=== PATIENT | male | born 1965 | race Caucasian/White ===

== ENCOUNTER 2018-02-16 01:04 | Emergency (ER) | payer OTHER ==
--- NOTE | 2018-02-16 02:26 | EDPHYS ---
Physician Documentation [facility] Name: Robert Magana Age: 52 yrs Sex: Male : 1965 Arrival Date: 02/16/2018 Time: 01:09 Bed 13 Private MD: Charles Delgadillo ED Physician Tony Watson HPI: 02/16 02:17 This 52 yrs old Male presents to ER via Ambulatory with complaints of Wound gs Infection. 02:17 Patient presents to ED for recheck of: surgery 01/28 noticed some swelling to wound, also gs concerned about edema lower extremities saw pcp today restarted hctz, no pain in extremities. The affected area is on the lumbar area. Progress: The patient reports decreased. The patient has not experienced similar symptoms in the past. Historical: - Allergies: No Known Allergies; fc - Home Meds: allopurinol Oral once daily [Active]; Propecia 1 mg oral tab 1 tab once daily [Active]; fc - PMHx: Hypertension; Gout; fc - PSHx: back surg; Knee surgery; fc - Immunization history:: Last tetanus immunization: up to date. - Social history:: Smoking status: Patient/guardian denies using tobacco. - Ebola Screening: : Patient negative for fever greater than or equal to 101.5 degrees Fahrenheit, and additional compatible Ebola Virus Disease symptoms Patient denies exposure to infectious person Patient denies travel to an Ebola-affected area in the 21 days before illness onset. ROS: 02:17 All other systems are negative. gs Exam: 02:17 Cardiovascular: Regular rate and rhythm with a normal S1 and S2. No gallops, murmurs, gs or rubs. Normal PMI, no JVD. No pulse deficits. Respiratory: Lungs have equal breath sounds bilaterally, clear to auscultation and percussion. No rales, rhonchi or wheezes noted. No increased work of breathing, no retractions or nasal flaring. Abdomen/GI: Soft, non-tender, with normal bowel sounds. No distension or tympany. No guarding or rebound. No evidence of tenderness throughout. Skin: Warm, dry with normal turgor. Normal color with no rashes, no lesions, and no evidence of cellulitis. 02:17 Constitutional: The patient appears alert, awake. 02:17 Back: incision healed, small sub q fluid collection. 02:17 Musculoskeletal/extremity: Pulses: are normal with no appreciated deficits, DVT Exam: gs no pain, no tenderness, negative Homans' sign noted on exam, no appreciated bluish discoloration, no erythema, no increased warmth, swelling. 02:17 Skin: Exam negative for cellulitis. 02:17 Neuro: Exam negative for acute changes. 02:26 Musculoskeletal/extremity: Extremities: noted in the right leg and left leg: Edema, 2+ gs to the left midcalf, left ankle, right midcalf and right ankle is noted, DVT Exam: Vital Signs: 01:29 BP 154 / 87; Pulse 83; Resp 18; Temp 98.0(O); Pulse Ox 97% on R/A; Weight 98.43 kg (R); fc Height 6 ft. 0 in. (182.88 cm) (R); Pain 3/10; 01:29 Body Mass Index 29.43 (98.43 kg, 182.88 cm) fc MDM: 02:04 Patient medically screened. 02:17 Data reviewed: vital signs, nurses notes. ED course: discussed back wound had called dr chelsey figueroa pa told him was to be expected. no tenderness medial thigh no pain in calf discuss low probability of dvt has been off diuretics for 2 weeks has restarted. pt says he doesn't want repeat bloodwork or us wants to go home encouraged to keep legs elevated continue hctz. Administered Medications: No medications were administered Disposition: 02/16/18 02:25 Discharged to Home. Impression: Edema, unspecified, seroma. - Condition is Stable. - Discharge Instructions: Edema, Seroma. - Medication Reconciliation Form, Thank You Letter, Antibiotic Education, Prescription Opioid Use form. - Follow up: Charles Delgadillo MD; When: 2 - 3 days; Reason: Re-evaluation by your physician. Follow up: Jonathan Figueroa MD; When: 2 - 3 days; Reason: Re-evaluation by your physician. Signatures: Isabel Portillo RN RN fc Kristi Zapata RN RN tl2 Tony Watson MD MD gs Corrections: (The following items were deleted from the chart) 02:40 02:25 02/16/2018 02:25 Discharged to Home. Impression: Edema, unspecified; seroma. tl2 Condition is Stable. Forms are Medication Reconciliation Form, Thank You Letter, Antibiotic Education, Prescription Opioid Use. Follow up: Charles Delgadillo; When: 2 - 3 days; Reason: Re-evaluation by your physician. Follow up: Jonathan Figueroa; When: 2 - 3 days; Reason: Re-evaluation by your physician. gs
--- NOTE | 2018-02-16 02:26 | ER ---
Nurse's Notes [facility] Name: Rboert Magana Age: 52 yrs Sex: Male : 1965 Arrival Date: 02/16/2018 Time: 01:09 Bed 13 Private MD: Charles Delgadillo Diagnosis: Edema, unspecified;seroma Presentation: 02/16 01:22 Presenting complaint: Patient states: that he had back surg on January 28, 2018 by Jonathan Santos, it was a L4-L5 disc laminectomy on the right side. 2 days ago he looked at his incision and it was red/black. Was unable to get into office yesterday due to there being no appt available. Went to [facility] today due to his feet being swollen and was given Hydrochlorothiazide. He took that at 1300 yesterday. Transition of care: patient was not received from another setting of care. Onset of symptoms was February 13, 2018. Risk Assessment: Do you want to hurt yourself or someone else? Patient reports no desire to harm self or others. Care prior to arrival: None. 01:22 Method Of Arrival: Ambulatory 01:22 Acuity: LASHONDA 3 fc 01:56 Initial Sepsis Screen: Does the patient meet any 2 criteria? No. Patient's initial tl2 sepsis screen is negative. Does the patient have a suspected source of infection? No. Patient's initial sepsis screen is negative. Triage Assessment: 01:32 General: Appears uncomfortable, slender, unkempt, Behavior is calm, cooperative, fc appropriate for age. Pain: Complains of pain in back Pain currently is 3 out of 10 on a pain scale. Quality of pain is described as aching, Pain began gradually, Is continuous. EENT: No deficits noted. Neuro: Level of Consciousness is awake, alert, obeys commands, Oriented to person, place, time, situation. Cardiovascular: No deficits noted. Cardiovascular:. Respiratory: No deficits noted. GI: No deficits noted. : No deficits noted. Derm: Skin is pink, warm \T\ dry. healing laceration to back with light pink areas around it. Musculoskeletal: Circulation, motion, and sensation intact. Capillary refill < 3 seconds, Range of motion: intact in all extremities, Swelling present in both lower legs Reports pain in lumbar area. Historical: - Allergies: 01:29 No Known Allergies; - Home Meds: : allopurinol Oral once daily [Active]; Propecia 1 mg oral tab 1 tab once daily [Active]; fc - PMHx: : Hypertension; Gout; - PSHx: back surg; Knee surgery; fc - Immunization history:: Last tetanus immunization: up to date. - Social history:: Smoking status: Patient/guardian denies using tobacco. - Ebola Screening: : Patient negative for fever greater than or equal to 101.5 degrees Fahrenheit, and additional compatible Ebola Virus Disease symptoms Patient denies exposure to infectious person Patient denies travel to an Ebola-affected area in the 21 days before illness onset. Screenin:31 Abuse screen: Denies threats or abuse. Nutritional screening: No deficits noted. tl2 Tuberculosis screening: No symptoms or risk factors identified. Fall Risk None identified. Assessment: :56 General: Appears in no apparent distress. uncomfortable, Behavior is calm, cooperative, tl2 appropriate for age. Pain: Complains of pain in lumbar area. Neuro: Level of Consciousness is awake, alert, obeys commands, Oriented to person, place, time, situation. Cardiovascular: Denies chest pain. Cardiovascular: Edema is 2+ to left ankle, left foot, right ankle and right foot pitting to left ankle, left foot, right ankle and right foot. Respiratory: Airway is patent Respiratory effort is even, unlabored, Respiratory pattern is regular, symmetrical. GI: No signs and/or symptoms were reported involving the gastrointestinal system. : No signs and/or symptoms were reported regarding the genitourinary system. Derm: Skin is pink, warm \T\ dry. :56 Derm: Reports redness to incision site on lumbar area. tl2 02:31 Reassessment: Patient appears in no apparent distress at this time. Patient and/or tl2 family updated on plan of care and expected duration. Pain level reassessed. Patient is alert, oriented x 3, equal unlabored respirations, skin warm/dry/pink. Pt verbalized understanding of discharge instructions and need for follow up. Vital Signs: :29 BP 154 / 87; Pulse 83; Resp 18; Temp 98.0(O); Pulse Ox 97% on R/A; Weight 98.43 kg (R); fc Height 6 ft. 0 in. (182.88 cm) (R); Pain 3/10; 01:29 Body Mass Index 29.43 (98.43 kg, 182.88 cm) ED Course: 01:09 Patient arrived in ED. am2 01:09 Charles Delgadillo MD is Private Physician. am2 01:26 Triage completed. 01:31 Arm band placed on Patient placed in waiting room, Patient notified of wait time. 01:55 Kristi Zapata RN is Primary Nurse. tl2 02:04 Tony Watson MD is Attending Physician. gs 02:24 Charles Delgadillo MD is Referral Physician. gs 02:24 Jonathan Santos MD is Referral Physician. 02:31 Patient has correct armband on for positive identification. Placed in gown. Bed in low tl2 position. Call light in reach. 02:31 No provider procedures requiring assistance completed. Patient did not have IV access tl2 during this emergency room visit. Administered Medications: No medications were administered Outcome: 02:25 Discharge ordered by MD. 02:31 Discharged to home ambulatory. tl2 02:31 Condition: stable 02:31 Discharge instructions given to patient, Instructed on discharge instructions, follow up and referral plans. Demonstrated understanding of instructions, follow-up care. 02:40 Patient left the ED. tl2 Signatures: Isabel Portillo RN RN Kristi Zapata RN RN tl2 Carolina Clement 2 Tony Watson MD MD
== END 2018-02-16 02:40 | disposition home or self-care (01) ==
LOC: ER 01:04
DX: R60.9 Edema, unspecified (principal); I10 Essential (primary) hypertension
CPT/HCPCS: 99281